=== PATIENT | female | born 1945 | race Caucasian/White ===

== ENCOUNTER 2018-03-19 18:18 | Emergency (ER) | payer BC ==
[~2018-03-19] VITALS: Ht 162.6 cm; Wt 58.9 kg
[2018-03-19] MEDS ORDERED: PREDNISONE20 MG PO (19:37)
[2018-03-19] MEDS ORDERED: PEPCID20 MG PO (19:37)
[2018-03-19] MEDS ORDERED: EPIPEN ADU0.3 MG/0.3 IM (19:38)
[2018-03-19 20:27] VITALS: BP 148/76
== END 2018-03-19 20:28 | disposition home or self-care (01) ==
LOC: EME 18:18 → RME 18:18
DX: T63.441A Toxic effect of venom of bees, accidental (unintentional), initial encounter (principal); L50.9 Urticaria, unspecified; Z88.8 Allergy status to other drugs, medicaments and biological substances
CPT/HCPCS: 99281; 99283; J7512